=== PATIENT | male | born 1930 | race Caucasian/White ===

== ENCOUNTER 2018-07-19 18:41 | Inpatient (IN) ==
--- NOTE | 2018-07-19 19:47 | Cat Scan Report ---
CLINICAL INFORMATION: Head injury COMPARISON: None. TECHNIQUE: Axial noncontrast-enhanced images through the brain. FINDINGS: No acute intracranial hemorrhage. No subdural hematoma. No subarachnoid hemorrhage. Basilar cisterns are normal. Severe cerebral atrophy with marked enlargement of superficial subarachnoid spaces and ventricles. No intra-axial hemorrhage. No focal intra-axial attenuation abnormality or localized mass effect. No midline shift. No calvarial fracture. No lytic lesion. Temporal bones are negative. IMPRESSION: 1. Severe cerebral atrophy 2. No acute or focal abnormality The exam was performed using radiation dose optimization techniques including, but not limited to, automated exposure control, adjustment of the mA and/or kV according to patient size and use of iterative reconstruction technique. Interpreted and Authenticated by: Leandro March 07/19/18
--- NOTE | 2018-07-19 19:49 | XRay Report ---
CLINICAL INFORMATION: Fall. Hip pain. TECHNIQUE: AP pelvis. COMPARISON: Previous examination dated 10/03/2017 FINDINGS: Markedly suboptimal evaluation. The patient was unable to straighten his left leg. No pelvic fracture. Sacrum is negative. There is degenerative disc disease in the lower lumbar spine. There is lumbar scoliosis. Left hip is poorly visualized. Subcapital fracture is possible. CT scan is pending. IMPRESSION: 1. Negative pelvis. No pelvic fracture 2. Left subcapital hip fracture is possible. CT scan is pending Interpreted and Authenticated by: Leandro March 07/19/18
--- NOTE | 2018-07-19 19:56 | Cat Scan Report ---
CLINICAL INFORMATION: Left hip pain TECHNIQUE: Axial noncontrast enhanced images through the pelvis and hips. Sagittal and coronal reformatted images COMPARISON: Plain film examination of the pelvis dated 07/19/2018. FINDINGS: Left subcapital hip fracture with mild impaction. No lytic lesion. No evidence for pathologic fracture. Right hip is negative. Pelvis is negative. No pelvic fracture. No lytic lesion. Sacrum is negative. Degenerative disc disease in the lower lumbar spine. There is a right inguinal hernia containing small bowel. Hernia defect measures 2.5 cm. Small bowel extends to the base of the scrotum. No evidence for obstruction. No bowel wall thickening. No fluid within the hernia sac. There is a small left inguinal hernia containing only mesenteric fat. There is calcification of the abdominal aorta. Distal abdominal aorta measures approximately 2.6 cm in AP diameter. Large amount of fecal material within the rectum consistent with fecal impaction. Probable mild pneumatosis with bowel wall thickening consistent with stercoral colitis. No free intraperitoneal fluid. No pelvic abscess. No diverticulitis. Severe degenerative disc disease in the lower lumbar spine. Left renal pelvis is dilated. No definite hydronephrosis. No ureteral stone. IMPRESSION: 1. Left subcapital hip fracture 2. Right inguinal hernia containing small bowel. No mechanical small bowel obstruction. 3. Findings consistent with fecal impaction within the rectum. Probable mild bowel wall thickening and mild pneumatosis 4. Calcification of the abdominal aorta. Mildly dilated infrarenal abdominal aorta as above Interpreted and Authenticated by: Leandro March 07/19/18
[2018-07-19] MEDS ORDERED: HYDROmorphone 2 MG/ML VIAL IV PRN (20:10)
--- NOTE | 2018-07-19 20:17 | Emergency Department Note ---
Head Injury HPI - General Chief complaint: Head Injury Stated complaint: head injury, laceration Time Seen by Provider: 07/19/18 18:55 Source: patient Mode of arrival: wheelchair Limitations: no limitations - History of Present Illness HPI Narrative: 87-year-old male presents with head injury. About half hour prior to arrival he somehow fell and hit his head on the wall. Laceration controlled with simple dressing. No loss of consciousness. Denies any head or neck pain. He lives at home with his and has a caregiver that comes in. states he has severe dementia and he does not really want to walk or get around at all now that this happened but she believes he just hurt his head. Patient will not give me any information, is confused and somewhat combative on exam. Difficult to assess. Place: home - Related Data Previous Rx's Medication Instructions Recorded wheeled walker #1 ea 10/05/17 citalopram 20 mg tablet 20 mg PO QPM #90 tab 10/20/17 wheelchair See Dose Instructions .ROUTE 03/22/18 .MEDSUPPLY #1 each Allergies/Adverse reactions: Allergies Allergy/AdvReac Type Severity Reaction Status Date / Time Penicillins AdvReac Severe Swelling Verified 07/19/18 18:44 Review of Systems All systems ED: reviewed and negative except as stated. Past Medical History - Past Medical History Medical history: Reports: dementia, other (Alzheimer's disease, inguinal hernia, epidermal cyst) Psychiatric history: Reports: other (Dementia) Surgical history ED: Reports: non-contributory - Social History smoking status: Never smoker Alcohol use: Reports: None Drug use: Reports: none Physical Exam Limitations: no limitations General appearance: alert, other (Agitated at times. Is calm with family at the bedside but when I try to approach him to assess him he becomes agitated) Head: normocephalic, other (Laceration to posterior scalp through the dermis and epidermis, irregular 2 cm) Eye: Present: normal appearance, PERRL. Absent: conjunctival injection ENT: normal exam, normal oropharynx, TM's normal bilaterally, normal external ear exam Neck: Present: normal inspection, trachea midline. Absent: tenderness Chest: Present: symmetric chest wall rise Respiratory: Present: normal lung sounds bilaterally. Absent: respiratory distress, rales/crackles, accessory muscle use Cardiovascular: Present: regular rate, normal heart sounds Extremities: Present: normal capillary refill. Absent: normal inspection (Patient becomes combative with any pressure on the left hip area. Difficult to access but is definitely tender diffusely left hip) Neurological: Present: alert, oriented X3 Psychiatric: Present: normal affect, normal mood Skin: Present: warm, dry, normal color. Absent: intact (Please see head assessment for laceration to posterior scalp) Course Course Narrative: We are unable to get a hip x-ray and have patient cooperate due to agitation and dementia. We were able to however get CT scans done. It does show head CT is negative for any acute findings but he does have a hip fracture. At 2014 I did speak with Dr. Darling, orthopedist iron worker foreman. He would like to see the h ospitalist would admit this patient and he will see him in the morning. Family also considering may be long-term care placement as he was already quite a lot for them to handle at home and with this he will be much worse. @2200 Dr. Muir accepted pt, Dr Darling to consult Vital Signs Temperature 96.7 F L 07/19/18 18:42 Pulse Rate 88 07/19/18 18:42 Respiratory Rate 20 07/19/18 18:42 Blood Pressure 140/80 07/19/18 18:42 Pulse Oximetry (%) 95 07/19/18 18:42 Temperature 96.7 F L 07/19/18 18:42 Pulse Rate 95 H 07/19/18 22:01 Respiratory Rate 18 07/19/18 20:10 Blood Pressure 129/76 07/19/18 22:01 Pulse Oximetry (%) 90 07/19/18 22:01 Head Injury - Lab Data Lab results reviewed: Yes I reviewed the patient's lab results. Result diagrams: 07/19/18 20:32 07/19/18 20:32 Lab Results 07/19/18 07/19/18 Range/Units 20:32 20:32 WBC 18.5 H (4.5-11.0) K/mcL RBC 5.18 (4.50-5.90) M/mcL Hgb 14.1 (13.5-16.5) g/dL Hct 43.9 (41.0-55.0) % MCV 84.8 (80.0-100.0) fL MCH 27.3 (26.0-34.0) pg MCHC 32.2 (31.0-36.0) g/dL RDW 13.6 (11.5-14.5) % Plt Count 262 (140-440) K/mcL MPV 8.3 (7.4-10.4) fL Gran % 90.2 H (38.0-78.0) % Lymph % (Auto) 4.6 L (15.5-49.0) % [place] % (Auto) 5.0 (1.0-12.0) % Eos % (Auto) 0.2 (0.0-7.0) % Baso % (Auto) 0 (0.0-2.0) % Gran # 16.6 H (1.8-8.0) K/mcL Lymph # (Auto) 0.8 L (1.5-4.8) K/mcL [place] # (Auto) 0.9 (0.1-0.9) K/mcL Eos # (Auto) 0 (0.0-0.7) K/mcL Baso # (Auto) 0 (0.0-0.3) K/mcL Sodium 141 (133-145) mmol/L Potassium 4.8 (3.3-5.1) mmol/L Chloride 104 (96-108) mmol/L Carbon Dioxide 25 (22-30) mmol/L Anion Gap 12.0 (8-16) BUN 30 H (8-23) mg/dl Creatinine 1.1 (0.7-1.2) mg/dl GFR Calculation 60 Glucose 110 H (70-105) mg/dL Calcium 9.7 (8.6-10.4) mg/dl Total Bilirubin 0.4 (0.0-1.0) mg/dL AST 23 (0-37) U/l ALT 20 (0-40) U/l Alkaline Phosphatase 102 (39-117) U/L Total Protein 7.0 (5.9-8.4) gm/dL Albumin 3.9 (3.2-5.2) gm/dL Globulin 3.1 (2.2-3.7) gm/dL Albumin/Globulin Ratio 1.3 (1.0-2.3) - Radiology Data Radiology results reviewed: Yes I reviewed the patient's radiology results. Disposition Pt seen by CONTRACT SHELTERED WORKSHOP SUPERVISOR/PA only: No Clinical Impression: Fall, Hip fracture, Dementia, Head injury, Laceration Disposition: Xfer As Inpt ([facility]) Condition: Fair Referrals: Scott Aly PA-C [Primary Care Provider] - Loree Darling MD [Physician] - Time of Disposition: 10:07
[2018-07-19 21:25] LABS: Basophils # (Auto) 0 K/mcL (0.0-0.3); Basophils % (Auto) 0 % (0.0-2.0); Eosinophils # (Auto) 0 K/mcL (0.0-0.7); Eosinophils % (Auto) 0.2 % (0.0-7.0); Granulocytes % (Auto) 90.2 % (38.0-78.0); Lymphocytes # (Auto) 0.8 K/mcL (1.5-4.8); Lymphocytes % (Auto) 4.6 % (15.5-49.0); Mean Cell Volume 84.8 fL (80.0-100.0); Mean Corpuscular HGB Conc 32.2 g/dL (31.0-36.0); Monocytes # (Auto) 0.9 K/mcL (0.1-0.9); Platelet Count 262 K/mcL (140-440); RBC 5.18 M/mcL (4.50-5.90); Red Cell Distribution Width 13.6 % (11.5-14.5)
[2018-07-19 21:42] LABS: ALT/SGPT 20 U/l (0-40); Albumin 3.9 gm/dL (3.2-5.2); Albumin/Globulin Ratio 1.3 (1.0-2.3); Alkaline Phosphatase 102 U/L (39-117); Blood Urea Nitrogen 30 mg/dl (8-23)
--- NOTE | 2018-07-19 22:14 | Internal Med History&Physical ---
Medical - H&P: HPI Patient information: Note initiated : 07/19/18 at 10:12 pm Service Date, if different from initiated Date: [] Patient: Sandoval Chaudhary a 87 y/o M admitted on for head injury, laceration. Chief Complaint: [] Chief complaint: fall History of present illness: Mr. Chaudhary is a 87 year old M with history of advanced Alzheimer's dementia with mostly non-communicative and has developed progressive weakness presents to the ER after sustaining a fall along with head laceration. He is accompanied by his who is his primary caregiver. Per records has been having substantial difficulty taking care of Sandoval due to advanced dementia.. Initial workup was consistent with left hip subcapital fracture, white count of 18,000. Patient underwent head laceration repair. Orthopedics was consulted Hospitalist service was requested for admission. At the time of evaluation patient is nonverbal. He is in moderate distress from pain. No family present. has already left home. Most of the history is obtained from review of prior medical records and ER physician. Per records patient does not have any history of coronary disease/CVA/renal failure. Patient does not have any history of smoking alcoholism. Review of systems 10 point review of system was attempted but could not be performed Medical - H&P: PMH Medical history: Right inguinal hernia (Chronic) Urge incontinence (Chronic) 2013 Epidermal inclusion cyst (Chronic) (04/26/14-Dr. Brooke) Alzheimers disease (Chronic) 2007 Surgical History H/O repair of right rotator cuff (Chronic) 2009 H/O Achilles tendon repair (Chronic) 2005 Family History Father Alcohol abuse Malignant neoplasm Cerebrovascular accident (CVA) Mother , at age 63 Alcohol abuse Atherosclerosis of coronary artery Social History marital status: smoking status: Never smoker alcohol intake frequency: does not drink Medical - H&P: Meds Home Medications Medication Instructions Recorded Confirmed Type Citalopram Hydrobromide 20 mg PO DAILY 07/20/18 07/20/18 History [Citalopram HBr] Multivitamin 1 tab PO DAILYP PRN 07/20/18 07/20/18 History Allergies Allergy/AdvReac Type Severity Reaction Status Date / Time Penicillins Allergy Severe Swelling Verified 07/20/18 06:07 Medical - H&P: Exam - Constitutional Vitals: Temp Pulse Resp BP Pulse Ox 96.7 F L 95 H 18 129/76 90 07/19/18 18:42 07/19/18 22:01 07/19/18 20:10 07/19/18 22:01 07/19/18 22:01 General appearance: no acute distress Exam: Resting comfortably nonverbal noncommunicative Head laceration sutured No ear nose discharge Oral cavity dry Neck no lymphadenopathy S1-S2 irregular occasional, is a systolic murmur grade 1 Diminished breath sounds bases Abdomen soft Left lower extremity shortened and externally rotated No joint swelling erythema or lymphedema Deleon's catheter draining clear urine Skin no suspicious lesion Psych no agitation Neuro could not performed underlying dementia Medical - H&P: Reslt - Labs CBC & Chem 7: 07/20/18 03:46 07/20/18 03:46 Labs: Short CBC 07/19/18 Range/Units 20:32 WBC 18.5 H (4.5-11.0) K/mcL Hgb 14.1 (13.5-16.5) g/dL Hct 43.9 (41.0-55.0) % Plt Count 262 (140-440) K/mcL BMP 07/19/18 20:32 Sodium 141 Potassium 4.8 Chloride 104 Carbon Dioxide 25 BUN 30 H Creatinine 1.1 Glucose 110 H Calcium 9.7 Liver Function 07/19/18 Range/Units 20:32 Total Bilirubin 0.4 (0.0-1.0) mg/dL AST 23 (0-37) U/l ALT 20 (0-40) U/l Alkaline Phosphatase 102 (39-117) U/L Albumin 3.9 (3.2-5.2) gm/dL Medical - H&P: A/P (1) Closed left hip fracture Current visit: Yes Status: Acute * Left hip fracture-inpatient admit. Orthopedic consult. Pain management. Keep n.p.o. * Preoperative risk evaluation-based on [place] [employer] risk stratification patient would fall under high risk category based on age and surgery specific risk however prior history of CAD/CVA renal failure he has no modifiable risk factor at this time. Patient may proceed with surgery after discussion of risks and benefits by respective care provider including orthopedics and anesthesia. * Leukocytosis likely stress response-check UA blood culture. Start empiric Rocephin. De-escalate in 24 hours if no evidence of infection * History of dementia high risk delirium. Continue close monitoring * Dementia induced disorder continue citalopram * DNR * Prophylaxis will be as per orthopedics Plan * Inpatient admit * Pain management * Empiric antibiotic coverage * N.p.o./crystalloids
[2018-07-19 22:15] LABS: Appearance,Urine CLEAR; Bilirubin,Urine NEG (NEG); Color,Urine YELLOW; Glucose,Urine (UA) NEGATIVE (NEG); Leukocyte Esterase,Urine NEG /uL (NEG); Protein,Urine NEG (NEG); Specific Gravity,Urine 1.016 (1.000-1.035); Urine Blood NEG mg/dL (<0.03); Urobilinogen,Urine NEG (NEG)
[2018-07-20] MEDS ORDERED: 0.9 % SODIUM CHLORIDE 1,000 ML IV SCH (00:49)
[2018-07-20] MEDS ORDERED: POTASSIUM CHLORIDE 20 MEQ PACKET PO PRN ×2 (00:49→12:43)
[2018-07-20] MEDS ORDERED: traZODone HCL 50 MG TABLET PO PRN ×2 (00:49→21:00)
[2018-07-20] MEDS ORDERED: HYDROmorphone 2 MG/ML VIAL IV PRN (00:49)
[2018-07-20] MEDS ORDERED: ONDANSETRON 4 MG/2 ML VIAL IV PRN ×3 (00:49→12:43)
[2018-07-20] MEDS ORDERED: ACETAMINOPHEN 325 MG TABLET PO PRN (00:49)
[2018-07-20] MEDS ORDERED: cefTRIAXone 2 GM in DEXTROSE 5% IN WATER 50 ML IV SCH ×2 (00:49→17:00)
[2018-07-20] MEDS ORDERED: BISACODYL 10 MG SUPP.RECT PR PRN ×2 (00:49→12:43)
[2018-07-20] MEDS ORDERED: MAGNESIUM SULFATE 2 GM/50 ML BAG IV PRN ×2 (00:49→12:43)
[2018-07-20] MEDS ORDERED: guaiFENesin/CODEINE 10 ML UDC PO PRN ×2 (00:49→12:43)
[2018-07-20] MEDS ORDERED: ACETAMINOPHEN 1,000 MG/100 ML BOTTLE IV PRN (00:49)
[2018-07-20] MEDS: 0.9 % SODIUM CHLORIDE 10 ML SYRINGE IV SCH ×4 (01:12→20:57)
[2018-07-20] MEDS ORDERED: cefTRIAXone 1 GM VIAL ONE (01:25)
[2018-07-20] MEDS: cefTRIAXone 1 GM VIAL ONE ×2 (01:41→01:44)
--- NOTE | 2018-07-20 06:06 | XRay Report ---
INDICATION: Preoperative evaluation TECHNIQUE: AP chest x-ray,portable COMPARISON: None FINDINGS:There is density in the left retrocardiac region consistent with atelectasis or infiltrate. Lungs are otherwise negative. No other focal pulmonary parenchymal abnormalities. Heart size and vascularity are normal. No pulmonary edema or pulmonary congestion. IMPRESSION: 1. Mild density in left retrocardiac region consistent with atelectasis or infiltrate 2. Otherwise negative AP portable chest Interpreted and Authenticated by: Leandro March 07/20/18
[2018-07-20 06:17] LABS: Mean Cell Volume 84.6 fL (80.0-100.0); Platelet Count 237 K/mcL (140-440); RBC 4.66 M/mcL (4.50-5.90); Red Cell Distribution Width 13.8 % (11.5-14.5)
[2018-07-20 07:17] LABS: ALT/SGPT 17 U/l (0-40); Albumin 3.6 gm/dL (3.2-5.2); Albumin/Globulin Ratio 1.4 (1.0-2.3); Alkaline Phosphatase 84 U/L (39-117); Bilirubin,Direct < 0.2 mg/dL (0.0-0.3); Blood Urea Nitrogen 34 mg/dl (8-23); Gamma Glutamyl Transpeptidase 10 U/L (8-61); Uric Acid 6.6 mg/dL (2.5-8.0)
--- NOTE | 2018-07-20 07:33 | Consultation ---
DATE OF CONSULTATION: 07/20/2018 REQUESTING PHYSICIAN: GINETTE Doan REASON FOR CONSULTATION: Left hip fracture, head laceration. HISTORY OF PRESENT ILLNESS: The patient is an 87-year-old demented male who presented with his family to the ER yesterday evening after a fall with a head laceration. He was subsequently found to also have a left hip fracture. CT of the pelvis as well as the head were completed. The patient was admitted overnight by the hospitalist with further plan for potential operative fixation of left hip fracture. At this point the patient is lying comfortably in bed with no acute distress. He does not communicate. He does appear pleasant. PAST MEDICAL HISTORY: Alzheimer's dementia, inguinal hernia, epidural cyst. PAST SURGICAL HISTORY: Significant for Achilles tendon repair, rotator cuff repair. ALLERGIES: PENICILLINS. MEDICATIONS: Citalopram. SOCIAL HISTORY: Currently, he does reside at home with his , who is his primary electro mechanical solar technician. They do have what sounds like [facility] come daily to help as well. He is a nontobacco user, does not use any alcohol. REVIEW OF SYSTEMS: Otherwise, per review of chart is negative. PHYSICAL EXAMINATION: GENERAL: The patient is awake this morning. He is in no acute distress. He is not conversive, but does appear to be pleasant. EXTREMITIES: Bilateral lower extremities examined. His skin is intact throughout. His pelvis is stable. On his left hip he does have some ecchymosis over the greater trochanter. He does have his hips flexed and knees flexed in a comfortable position, lying on pillows. He does have a large mobile nodule approximately 4 or 5 cm at the level of the knee laterally. Distally, there is no skin discoloration over this area. It appears to be a subcutaneous lipoma potentially. Otherwise, skin is intact throughout lower extremities. His feet are warm and well perfused. He does not follow any commands to move his feet but spontaneously does minimally. LABORATORY DATA: CBC with a white count of 18.5 on admit with one being 15.1. His H and H is 12.6 and 39.4. His glucose is 110 with a normal creatinine of 1.1. His coagulation studies are pending. He has a CT of his head which is negative for any acute lesions, significant cerebral atrophy. AP pelvis which was difficult to interpret as he kind of had his hips flexed in an angled position. However, CT does demonstrate a valgus impacted femoral neck fracture of the left side. There are no other fractures that are identified. Of note, on the CT there are additional findings of abdominal aortic aneurysm, inguinal hernia. ASSESSMENT AND PLAN: This is an 87-year-old male with a left subcapital valgus impacted hip fracture with also a head laceration in a demented patient. At this point, his family is not present for further discussion. However, we will discuss with them as I would typically in non-demented patient perform a hip pinning, which would be less invasive and faster recovery, but also requires little a bit of compliance from the patient with regards to weightbearing. However, they do state he does walk minimally and uses a wheelchair with which he may be amenable to pinning for pain control and stability to allow the fracture to heal. Upon further discussion with his , he does not comply with restrictions and does walk to and from the kitchen/bathroom. I think given this and the non compliance a ian arthroplasty is the better option. does agree and plans to proceed with left hip ian arthroplasty. DLZoey:david Job ID: [id number] Doc ID: [id number] Loree CARRILLO
[2018-07-20 09:00] LABS: Band Neutrophils % 1 % (0-10); Lymphocytes % 6 % (15-49); Monocytes % (Manual) 6 % (1-12); Platelet Estimate NORMAL (NORMAL); RBC Morphology NORMAL (NORMAL); Segmented Neutrophils % 87 % (38-78)
[2018-07-20] MEDS ORDERED: ceFAZolin 1 GM VIAL IV SCH ×2 (09:00→16:30)
[2018-07-20] MEDS ORDERED: DOCUSATE SODIUM 100 MG CAPSULE PO SCH (09:00)
[2018-07-20] MEDS ORDERED: MULTIVIT,THER IRON,CA,FA & MIN 1 TABLET PO SCH (09:00)
[2018-07-20] MEDS ORDERED: LIDOCAINE HCL/PF 100 MG/5 ML SYRINGE IV ONE (09:10)
[2018-07-20] MEDS ORDERED: MIDAZOLAM 2 MG/2 ML VIAL IV ONE (09:10)
[2018-07-20] MEDS ORDERED: ONDANSETRON 4 MG/2 ML VIAL IV ONE (09:10)
[2018-07-20] MEDS ORDERED: KETAMINE 100 MG/ML ML IV ONE (09:10)
[2018-07-20] MEDS ORDERED: GLYCOPYRROLATE 0.2 MG/ML VIAL IV ONE (09:10)
[2018-07-20] MEDS ORDERED: PHENYLEPHRINE 10 MG/ML VIAL IV ONE (09:10)
[2018-07-20] MEDS ORDERED: TRANEXAMIC ACID 1,000 MG/10 ML VIAL IV ONE (09:10)
[2018-07-20] MEDS ORDERED: PROPOFOL 200 MG/20 ML VIAL IV ONE (09:10)
[2018-07-20] MEDS ORDERED: IPRATROPIUM/ALBUTEROL 3 ML AMPUL.NEB NEB PRN (10:42)
[2018-07-20] MEDS ORDERED: fentaNYL 100 MCG/2 ML VIAL IV PRN (10:42)
[2018-07-20] MEDS ORDERED: MEPERIDINE 25 MG/ML SYRINGE IV PRN (10:42)
[2018-07-20] MEDS ORDERED: LACTATED RINGERS 1,000 ML IV SCH (10:45)
--- NOTE | 2018-07-20 10:59 | Brief Operative Note ---
Date of procedure: 07/20/18 Pre-op diagnosis: left femoral neck fracture Post-op diagnosis: same Procedure: Left cemented hip hemiarthroplasty Grafts/Implants: Yes (depuy summit femoral step basic size 5, -3 tapered spacer, size 52 head) Anesthesia: spinal Findings: femoral neck fracture Complications: none Surgeon: Loree Darling Power Generation Plant Operator: Crispin White Estimated blood loss (cc): 150 Tourniquet Time (Minutes): 0 Specimens Removed/Pathology: none sent Condition: stable Disposition: PACU
[2018-07-20] MEDS ORDERED: oxyCODONE HCL 5 MG TABLET PO PRN (11:04)
[2018-07-20] MEDS ORDERED: NALOXONE HCL 0.4 MG/ML VIAL IV PRN ×2 (11:04→12:43)
[2018-07-20] MEDS ORDERED: BENZOCAINE/MENTHOL 1 LOZENGE PO PRN ×2 (11:04→12:43)
[2018-07-20] MEDS ORDERED: IBUPROFEN 200 MG TABLET PO PRN (11:04)
--- NOTE | 2018-07-20 12:01 | XRay Report ---
CLINICAL INFORMATION: Postsurgical follow-up TECHNIQUE: AP pelvis. AP and stable lateral left hip COMPARISON: Previous CT scan dated 07/19/2018 FINDINGS: Status post left hip arthroplasty. Alignment is anatomic. There is postsurgical soft tissue and intra-articular gas. There are skin morelia overlying the left hip. IMPRESSION: Status post left hip replacement Interpreted and Authenticated by: Leandro March 07/20/18
--- NOTE | 2018-07-20 12:59 | Operative Note ---
DATE OF OPERATION: 07/20/2018 PREOPERATIVE DIAGNOSES: 1. Left femoral neck fracture, valgus impacted. 2. Posterior head laceration. POSTOPERATIVE DIAGNOSES: 1. Left femoral neck fracture, valgus impacted. 2. Posterior head laceration. PROCEDURE PERFORMED: Left cemented hip hemiarthroplasty with DePuy. SURGEON: Loree Darling M.D. CORK SLABS SAWYER: Crispin White PA-C. ANESTHESIA: Spinal with LMA. IV FLUIDS: 1 liter lactated Ringer's. IV ANTIBIOTICS: 2 grams Ancef. ESTIMATED BLOOD LOSS: 150 mL. TOURNIQUET TIME: Not applicable. IMPLANTS: Size 5 [place] femoral stem from DePuy with a -3 taper and a size 52 metal head. INTRAOPERATIVE COMPLICATIONS: None apparent. PATHOLOGY/LAB: None. INDICATIONS FOR PROCEDURE: The patient is an 87-year-old male who fell yesterday evening at home with a head laceration which was brought in for that was subsequently found to have a left hip fracture as well. He has significant Alzheimer's and does not comply with any restrictions nor does he communicate verbally. Per report, he does ambulate to and from the kitchen as well as to the restroom, but does use a wheelchair for some mobility as well. This is a valgus-impacted femoral neck fracture which could consider pinning rather than a hip hemiarthroplasty. I discussed this with the , however, I am concerned that he will not be compliant with the restrictions and think he would be best served with hip hemiarthroplasty which will allow him immediate weightbearing and ambulation. does agree with this and elects to proceed in this fashion. DESCRIPTION OF PROCEDURE: The patient was met in the preoperative holding area, and the site was verified and marked with the 's input. He was then taken to the operating room where he underwent successful spinal anesthesia and LMA. He was placed in the lateral decubitus position with left side up and axillary arm roll placed. His lower extremity was adequately padded. The left lower extremity was then prepped and draped in the usual sterile fashion with ChloraPrep. A surgical timeout was performed to verify patient identity, correct procedure being performed, correct extremity being operated on, and everybody was in agreement. Approximately a 12 cm incision was made over the posterior one-third/middle one-third junction of the greater trochanter. Skin was sharply incised. Hemostasis was obtained with electrocautery device down to the tensor fasciae latae muscle and IT band distally. This was sharply incised with a clean 15 blade to expose the greater trochanter. The bursa was excised. The short external rotators were elevated off of the posterior aspect of the femoral neck and the greater trochanter to expose the capsule. These were tagged. Capsulotomy was made in line with the femoral neck, and the end of the capsule was also tagged with 0 Ethibond. At this point, the distal aspect of the femoral neck was exposed to the lesser tuberosity. 15 mm proximal to the less tuberosity, the femoral neck cut was marked. Utilizing oscillating saw and a retractor deep, the femoral neck cut was made and removed a portion of the fractured neck with a rongeur. Corkscrew was used to excise the femoral head in its entirety. It did not appear to be pathologic. This was sized to be a 52 mm. At this point, I copiously irrigated the acetabulum. I removed all the bony debris as well. The femoral neck was then exposed utilizing a femoral neck elevator. The experimental box tester was initially used to open the canal and then subsequently a canal finder was placed and a lateralizing reamer was was utilized.. Broaches were then subsequently placed up to a size 5 with good fit and rotational control matching the version of the posterior femoral neck. This was then placed into a standard neck with a 0 offset head. This was attempted to be reduced, however, it was very difficult. Trialed a -3mm and the joint was able to reduce. Leg lengths at this point appeared to be equal. He had full extension and hip flexion was stable to greater than 90 degrees, and he was stable with internal rotation as well. He was stable with a side lying position of 30/30 with hip flexion and knee flexion. I felt this was an adequate implant construct. The joint and open wound was copiously irrigated the with Irrisept and let it sit prior to irrigating it. At this point, the implants were then removed. The canal restrictor was placed deep just over 14cm. Placed a lap into the acetabulum while cementing. The canal was then irrigated utilizing pulse lavage, brush and a suction device to dry it out. Cement was then placed and pressurized. The stem was placed to match the version we had created The stem was held in place until the cement hardened. Placed the femoral head, impacted it and reduced the joint, and again went through range of motion which was stable, along with leg lengths equal. The posterior capsule was closed with 0 Ethibond in interrupted fashion, did tack down the short external rotators back to the greater trochanter via soft tissue technique. The wound was then irrigated again. The tensor fasciae latae muscle along with IT band was closed initially in interrupted fashion with 0 Ethibond. This repair was then completed with Stratafix distally and ran this proximally to the muscle. The most proximal portion of muscle was oversewn with 1-0 Vicryl. The fat layer was then closed as well and tacked down to the IT band and the tensor muscle itself. The subcutaneous tissue was closed with 3-0 Vicryl, skin closed with morelia. The leg was then cleaned and dried. Xeroform was placed along Medipore tape to secure the dressing. The patient awoke from anesthesia and placed into a hip abduction pillow and transferred to recovery. POSTOPERATIVE PLAN: The patient will be returned to the floor for postoperative recovery. Will likely transition to a long-term care facility given is a bit overwhelmed with his care at home. [id number] Job ID: [id number] Doc ID: [id number] Loree CARRILLO
[2018-07-20] MEDS: 0.9 % SODIUM CHLORIDE 1,000 ML IV SCH (13:11)
[2018-07-20] MEDS: ACETAMINOPHEN 1,000 MG/100 ML BOTTLE IV PRN (13:13)
--- NOTE | 2018-07-20 13:16 | Internal Med Progress Note ---
Medical - PN: Subj Patient information: Note initiated : 07/20/18 at 1:11 pm Service Date, if different from initiated Date: [] Patient: Sandoval Chaudhary a 87 y/o M admitted on 07/20/18 for head injury, laceration. Chief Complaint: [] Interval history: Mr. Chaudhary is a 87 year old M with history of advanced Alzheimer's dementia with mostly non-communicative and has developed progressive weakness presents to the ER after sustaining a fall along with head laceration. He is accompanied by his who is his primary caregiver. Per records has been having substantial difficulty taking care of Sandoval due to advanced dementia.. Initial workup was consistent with left hip subcapital fracture, white count of 18,000. Patient underwent head laceration repair. Orthopedics was consulted Hospitalist service was requested for admission. At the time of evaluation patient is nonverbal. He is in moderate distress from pain. No family present. has already left home. Most of the history is obtained from review of prior medical records and ER physician. Per records patient does not have any history of coronary disease/CVA/renal failure. Patient does not have any history of smoking alcoholism. 07/20-patient seen postoperatively. Underwent left hip arthroplasty. Alert but nonverbal. Short draining clear urine. Stable hemodynamics. Systolic 170. White count down from 18.5-15.1. Patient started on anticoagulation by orthopedics for DVT prophylaxis. No family at bedside. Case management to coordinate a safe discharge plan likely to [facility]. - Constitutional Vitals: Vital Signs Temp Pulse Resp BP Pulse Ox 97.7 F 95 H 20 171/99 95 07/20/18 12:30 07/20/18 12:52 07/20/18 12:30 07/20/18 12:52 07/20/18 12:52 Period Temp Pulse Resp BP Sys/Stephens Pulse Ox Last 24 Hr 96.7 F-99.2 F 35-104 15-20 116-172/68-99 85-100 Intake and Output 07/19/18 07/20/18 07/20/18 21:59 05:59 13:59 Intake Total 0 1999 Output Total 375 Balance 0 1625 Weight 150 lb 150 lb Intake & Output: Intake & Output 07/19/18 07/20/18 07/20/18 21:59 05:59 13:59 Intake Total 0 1999 Output Total 375 Balance 0 1625 Weight 150 lb 150 lb Intake: Oral 0 0 IV - Manual Only 1999 Output: Urine Catheter Amount 375 Other: Urine Appearance Clear Short Clear Clear Sediment Urine Color Straw Short Bright Yellow Urine Odor Foul General appearance: no acute distress Exam: Alert and comfortable Nonlabored breathing Short is draining clear urine No lymphedema Medical - PN: Obj Da - Labs CBC & Chem 7: 07/20/18 03:46 07/20/18 03:46 Labs: Abnormal Lab Results 07/20/18 07/20/18 07/20/18 06:49 03:46 03:46 WBC 15.1 H Hgb 12.6 L Hct 39.4 L Gran % Lymph % (Auto) Gran # Lymph # (Auto) Seg Neutrophils % 87 H Lymphocytes % 6 L PT 15.4 H INR 1.2 H BUN 34 H Glucose 129 H 07/19/18 07/19/18 20:32 20:32 WBC 18.5 H Hgb Hct Gran % 90.2 H Lymph % (Auto) 4.6 L Gran # 16.6 H Lymph # (Auto) 0.8 L Seg Neutrophils % Lymphocytes % PT INR BUN 30 H Glucose 110 H Meds: Medications Apixaban (Eliquis) 2.5 mg PO BID [facility] Bisacodyl (Dulcolax) 10 mg [place] Q2-3DAYS PRN PRN Reason: Constipation Citalopram Hydrobromide (Celexa) 20 mg PO HS [facility] Docusate Sodium (Colace) 100 mg PO BID [facility] Guaifenesin/Codeine Phosphate (Robitussin Ac) 10 ml PO Q4HP PRN PRN Reason: Cough Ceftriaxone Sodium 2 gm/ (Dextrose) 50 mls @ 100 mls/hr IV DAILY [facility] Magnesium Sulfate (Magnesium Sulfate) 2 gm in 50 mls @ 50 mls/hr IV UD PRN PRN Reason: MG = or < 1.7 Sodium Chloride (Sodium Chloride 0.9%) 1,000 mls @ 50 mls/hr IV .Q20H [facility] Stop: 07/22/18 12:48 Acetaminophen (Ofirmev) 1,000 mg in 100 mls @ 200 mls/hr IV Q6HP PRN PRN Reason: PAIN/FEVER > 101 Ibuprofen (Motrin) 400 mg PO QIDP PRN PRN Reason: Pain Iron Carb/Multivit/[place]/Folic Acid (Multivitamin W/Minerals) 1 tab PO DAILY [facility] Morphine Sulfate (Morphine) 0 mg IV Q1HP PRN PRN Reason: PAIN LEVEL > 6 Naloxone HCl (Narcan) 0.1 mg IV Q2MIN PRN PRN Reason: Opiate Reversal Ondansetron HCl (Zofran) 4 mg IV Q4-6HP PRN PRN Reason: Nausea And Vomiting Oxycodone HCl (Roxicodone) 0 mg PO Q4HP PRN PRN Reason: PAIN LEVEL 3-6 Potassium Chloride (Klor-Con) 40 meq PO DAILYP PRN PRN Reason: K+ < 3.5 Senna/Docusate Sodium (Senna Plus Tablet) 1 tab PO HS [facility] Sodium Chloride (Saline Flush) 10 ml IV Q8 [facility] Throat Lozenges (Cepacol) 1 lozenge PO PRN PRN PRN Reason: Sore Throat Trazodone HCl (Desyrel) 50 mg PO HSP PRN PRN Reason: Insomnia Medical - PN: A/P - Time Spent With Patient Total time spent is greater than 50% in coordination of care (as documented) at patient's floor/unit and/or counseling patient: 25 - 35 minutes (1) Closed left hip fracture Status: Acute Assessment and plan: * Left hip fracture-postop day 1. Left hemiarthroplasty. Postoperative care as per orthopedics. * Pain management as per orthopedics * DVT prophylaxis per orthopedics. Medicine consult * Leukocytosis likely stress response-clinically improving now at 15.5. DC antibiotic coverage. Negative UA or signs of infection * History of dementia high risk delirium. Avoid sedative hypnotics * Dementia induced disorder continue citalopram * DNR Plan * Postop care per orthopedics * DC antibiotics * PT OT/nutrition support * Discharge planning per case management Current Visit: Yes Medical - PN: Qual - VTE Deep Vein Thrombosis/Pulmonary Embolism Present on Admission: No
[2018-07-20] MEDS: oxyCODONE HCL 5 MG TABLET PO PRN (17:14)
[2018-07-20] MEDS: ceFAZolin 1 GM VIAL IV SCH ×2 (17:15→23:31)
[2018-07-20] MEDS: CITALOPRAM 20 MG TABLET PO SCH (20:56)
[2018-07-20] MEDS: SENNOSIDES/DOCUSATE SODIUM 1 TAB TABLET PO SCH (20:56)
[2018-07-20] MEDS: DOCUSATE SODIUM 100 MG CAPSULE PO SCH (20:56)
[2018-07-20] MEDS: APIXABAN 5 MG TABLET PO SCH (20:56)
[2018-07-20] MEDS ORDERED: SENNOSIDES/DOCUSATE SODIUM 1 TAB TABLET PO SCH (21:00)
[2018-07-20] MEDS ORDERED: APIXABAN 2.5 MG TABLET PO SCH (21:00)
[2018-07-20] MEDS ORDERED: CITALOPRAM 20 MG TABLET PO SCH (21:00)
[2018-07-21] MEDS: 0.9 % SODIUM CHLORIDE 10 ML SYRINGE IV SCH ×3 (04:34→21:12)
[2018-07-21] MEDS: 0.9 % SODIUM CHLORIDE 1,000 ML IV SCH ×3 (04:44→21:13)
[2018-07-21 06:45] LABS: Mean Cell Volume 85.3 fL (80.0-100.0); Mean Corpuscular HGB Conc 32.1 g/dL (31.0-36.0); Platelet Count 220 K/mcL (140-440); RBC 4.37 M/mcL (4.50-5.90); Red Cell Distribution Width 13.6 % (11.5-14.5)
[2018-07-21 07:09] LABS: ALT/SGPT 13 U/l (0-40); Albumin 3.3 gm/dL (3.2-5.2); Albumin/Globulin Ratio 1.2 (1.0-2.3); Alkaline Phosphatase 79 U/L (39-117); Bilirubin,Direct < 0.2 mg/dL (0.0-0.3); Blood Urea Nitrogen 29 mg/dl (8-23); Gamma Glutamyl Transpeptidase 8 U/L (8-61)
--- NOTE | 2018-07-21 07:21 | Orthopedic Progress Note ---
Subjective Patient information: Note initiated : 07/21/18 at 7:16 am Service Date, if different from initiated Date: [] Patient: Sandoval Chaudhary 87 y/o M admitted on 07/20/18 for head injury, laceration. Chief Complaint: [] Principal diagnosis: Left hip fracture Interval history: No acute events overnight. Working with therapy this AM, sitting on side of bed. Objective Vital signs: Vital Signs Temp Pulse Pulse Resp BP BP BP 07/21/18 07:08 98.3 F 100 H 18 138/78 07/21/18 04:00 99.2 F H 96 H 18 150/77 07/21/18 00:00 99.2 F H 98 H 16 168/78 07/20/18 20:00 98.9 F 92 H 20 150/74 07/20/18 19:41 07/20/18 15:45 89 136/83 07/20/18 15:15 81 127/72 07/20/18 14:41 07/20/18 14:15 128/80 07/20/18 13:50 07/20/18 13:45 135/86 07/20/18 13:24 174/104 07/20/18 13:15 181/107 07/20/18 12:52 95 H 171/99 07/20/18 12:30 97.7 F 92 H 20 172/97 07/20/18 12:25 97.8 F 89 18 155/90 07/20/18 12:15 82 16 168/90 07/20/18 12:00 81 15 156/86 07/20/18 11:45 98.1 F 83 15 149/86 07/20/18 11:30 80 15 161/88 07/20/18 11:25 79 15 144/91 07/20/18 11:20 73 16 129/79 07/20/18 11:15 97.5 F 76 15 116/68 07/20/18 08:00 97.1 F 72 16 130/82 Pulse Ox 07/21/18 07:08 95 07/21/18 04:00 90 07/21/18 00:00 91 07/20/18 20:00 91 07/20/18 19:41 95 07/20/18 15:45 97 07/20/18 15:15 95 07/20/18 14:41 95 07/20/18 14:15 93 07/20/18 13:50 97 07/20/18 13:45 97 07/20/18 13:24 94 07/20/18 13:15 96 07/20/18 12:52 95 07/20/18 12:30 94 07/20/18 12:25 99 07/20/18 12:15 100 07/20/18 12:00 100 07/20/18 11:45 100 07/20/18 11:30 100 07/20/18 11:25 100 07/20/18 11:20 100 07/20/18 11:15 100 07/20/18 08:00 97 Intake and Output 07/20/18 07/21/18 07/21/18 21:59 05:59 13:59 Intake Total 120 778 Output Total 150 400 Balance -30 378 Intake: IV 778 Sodium Chloride 0.9% 1,000 ml @ 778 50 mls/hr IV .Q20H [facility] Rx#: [id number] Oral 120 0 Output: Urine Catheter Amount 150 400 Other: Meal Dinner Percent of Meal Consumed 75% Weight 152 lb Intake & Output: Intake & Output 07/20/18 07/21/18 07/21/18 21:59 05:59 13:59 Intake Total 120 778 Output Total 150 400 Balance -30 378 Weight 152 lb Intake: IV 778 Sodium Chloride 0.9% 1,000 ml @ 778 50 mls/hr IV .Q20H [facility] Rx#: [id number] Oral 120 0 Output: Urine Catheter Amount 150 400 Other: Meal Dinner Percent of Meal Consumed 75% Incision: Yes clean and dry Incision clean and dry: Yes Dressing: Yes clean, Yes dry, Yes intact Weight bearing status: full Range of motion: Posterior hip precations Additional Comments: foot warm well perfused. - Labs CBC & BMP: 07/21/18 03:46 07/21/18 03:46 Labs: Orthopedic Labs 07/20/18 06:49 PT 15.4 H INR 1.2 H APTT 37 07/21/18 07/20/18 07/19/18 03:46 03:46 20:32 Hgb 12.0 L 12.6 L 14.1 Hct 37.3 L 39.4 L 43.9 Assessment and Plan (1) Hip fracture POD 1 s/p left hip ian arthroplasty for femoral neck fracture. --WBAT with posterior hip precautions x6 weeks --PT/OT--seeing him this AM --Oral pain medications -labs reviewed, H/H ok, WBC still elevated, afebrile, on supplemental O2. -prophy- sanjiv, scd's, IS, -Dispo: will need SNF placeement possibly vermin exterminator. Status: Acute
[2018-07-21] MEDS: ACETAMINOPHEN 1,000 MG/100 ML BOTTLE IV PRN ×2 (07:30→15:04)
[2018-07-21 07:48] LABS: Eosinophils % (Manual) 2 % (0-7); Lymphocytes % 9 % (15-49); Monocytes % (Manual) 9 % (1-12); Myelocytes % 1 % (0-0); Platelet Estimate NORMAL (NORMAL); RBC Morphology NORMAL (NORMAL); Segmented Neutrophils % 79 % (38-78)
[2018-07-21] MEDS ORDERED: HEPARIN 5,000 UNIT/ML VIAL SQ SCH (09:00)
[2018-07-21] MEDS: MULTIVIT,THER IRON,CA,FA & MIN 1 TABLET PO SCH (09:19)
[2018-07-21] MEDS: DOCUSATE SODIUM 100 MG CAPSULE PO SCH ×2 (09:19→21:13)
[2018-07-21] MEDS: APIXABAN 5 MG TABLET PO SCH ×2 (09:19→21:08)
--- NOTE | 2018-07-21 11:13 | XRay Report ---
INDICATION: Follow-up pneumonia TECHNIQUE: AP chest x-ray,portable upright COMPARISON: Chest x-ray dated 07/19/2018 FINDINGS:Focal left basilar, retrocardiac density is somewhat improved since previous examination consistent with improving pneumonia. No new abnormalities. Lungs are otherwise negative. Heart size and vascularity are normal. No pulmonary edema. No pulmonary congestion. IMPRESSION: 1. Improved left lower lobe infiltrate 2. No new abnormalities Interpreted and Authenticated by: Leandro March 07/21/18
--- NOTE | 2018-07-21 11:28 | Internal Med Progress Note ---
Medical - PN: Subj Patient information: Note initiated : 07/21/18 at 11:26 am Service Date, if different from initiated Date: [] Patient: Sandoval Chaudhary a 87 y/o M admitted on 07/20/18 for head injury, laceration. Chief Complaint: [] Interval history: Mr. Chaudhary is a 87 year old M with history of advanced Alzheimer's dementia with mostly non-communicative and has developed progressive weakness presents to the ER after sustaining a fall along with head laceration. He is accompanied by his who is his primary caregiver. Per records has been having substantial difficulty taking care of Sandoval due to advanced dementia.. Initial workup was consistent with left hip subcapital fracture, white count of 18,000. Patient underwent head laceration repair. Orthopedics was consulted Hospitalist service was requested for admission. At the time of evaluation patient is nonverbal. He is in moderate distress from pain. No family present. has already left home. Most of the history is obtained from review of prior medical records and ER physician. Per records patient does not have any history of coronary disease/CVA/renal failure. Patient does not have any history of smoking alcoholism. 07/20-patient seen postoperatively. Underwent left hip arthroplasty. Alert but nonverbal. Deleon draining clear urine. Stable hemodynamics. Systolic 170. White count down from 18.5-15.1. Patient started on anticoagulation by orthopedics for DVT prophylaxis. No family at bedside. Case management to coordinate a safe discharge plan likely to [facility]. 07/21-patient doing well. No overnight events. Was able to weight-bear today with physical therapy. DC Deleon's catheter. X-ray chest shows interval improvement in lower lobe atelectasis/infiltrate. However white count 15.5. No fever chills. No indication for antibiotics at this time. at bedside. Doing well. Ongoing postop care as per orthopedics - Constitutional Vitals: Vital Signs Temp Pulse Resp BP Pulse Ox 98.1 F 94 H 19 141/82 96 07/21/18 11:14 07/21/18 11:14 07/21/18 11:14 07/21/18 11:14 07/21/18 11:14 Period Temp Pulse Resp BP Sys/Stephens Pulse Ox Last 24 Hr 97.7 F-99.2 F 80-100 15-20 127-181/72-107 90-100 Intake and Output 07/20/18 07/21/18 07/21/18 21:59 05:59 13:59 Intake Total 120 778 240 Output Total 150 400 Balance -30 378 240 Weight 152 lb Intake & Output: Intake & Output 07/20/18 07/21/18 07/21/18 21:59 05:59 13:59 Intake Total 120 778 240 Output Total 150 400 Balance -30 378 240 Weight 152 lb Intake: IV 778 Sodium Chloride 0.9% 1,000 ml @ 778 50 mls/hr IV .Q20H [facility] Rx#: [id number] Oral 120 0 240 Output: Urine Catheter Amount 150 400 Other: Meal Dinner Breakfast Percent of Meal Consumed 75% 25% Feeding Ability Total Assistance General appearance: no acute distress Exam: Alert nonverbal Nonlabored breathing Deleon is draining clear urine No anxiety Postop dressing no localized swelling Medical - PN: Obj Da - Labs CBC & Chem 7: 07/21/18 03:46 07/21/18 03:46 Labs: Abnormal Lab Results 07/21/18 07/21/18 07/20/18 03:46 03:46 06:49 WBC 15.5 H RBC 4.37 L Hgb 12.0 L Hct 37.3 L Gran % Lymph % (Auto) Gran # Lymph # (Auto) Seg Neutrophils % 79 H Lymphocytes % 9 L Myelocytes % 1 H PT 15.4 H INR 1.2 H BUN 29 H Glucose 147 H Phosphorus 2.6 L Lactate Dehydrogenase 282 H 07/20/18 07/20/18 07/19/18 03:46 03:46 20:32 WBC 15.1 H RBC Hgb 12.6 L Hct 39.4 L Gran % Lymph % (Auto) Gran # Lymph # (Auto) Seg Neutrophils % 87 H Lymphocytes % 6 L Myelocytes % PT INR BUN 34 H 30 H Glucose 129 H 110 H Phosphorus Lactate Dehydrogenase 07/19/18 20:32 WBC 18.5 H RBC Hgb Hct Gran % 90.2 H Lymph % (Auto) 4.6 L Gran # 16.6 H Lymph # (Auto) 0.8 L Seg Neutrophils % Lymphocytes % Myelocytes % PT INR BUN Glucose Phosphorus Lactate Dehydrogenase Meds: Medications Apixaban (Eliquis) 2.5 mg PO BID [facility] Last Admin: 07/21/18 09:19 Dose: 2.5 mg Documented by: Bisacodyl (Dulcolax) 10 mg [place] Q2-3DAYS PRN PRN Reason: Constipation Citalopram Hydrobromide (Celexa) 20 mg PO [facility] Last Admin: 07/20/18 20:56 Dose: 20 mg Documented by: Docusate Sodium (Colace) 100 mg PO BID [facility] Last Admin: 07/21/18 09:19 Dose: 100 mg Documented by: Guaifenesin/Codeine Phosphate (Robitussin Ac) 10 ml PO Q4HP PRN PRN Reason: Cough Magnesium Sulfate (Magnesium Sulfate) 2 gm in 50 mls @ 50 mls/hr IV UD PRN PRN Reason: MG = or < 1.7 Sodium Chloride (Sodium Chloride 0.9%) 1,000 mls @ 50 mls/hr IV .Q20H [facility] Stop: 07/22/18 12:48 Last Admin: 07/21/18 09:18 Dose: Not Given Documented by: Acetaminophen (Ofirmev) 1,000 mg in 100 mls @ 200 mls/hr IV Q6HP PRN PRN Reason: PAIN/FEVER > 101 Last Admin: 07/21/18 07:30 Dose: 200 mls/hr Documented by: Ibuprofen (Motrin) 400 mg PO QIDP PRN PRN Reason: Pain Iron Carb/Multivit/[place]/Folic Acid (Multivitamin W/Minerals) 1 tab PO DAILY [facility] Last Admin: 07/21/18 09:19 Dose: 1 tab Documented by: Morphine Sulfate (Morphine) 0 mg IV Q1HP PRN PRN Reason: PAIN LEVEL > 6 Last Admin: 07/21/18 01:20 Dose: 2 mg Documented by: Naloxone HCl (Narcan) 0.1 mg IV Q2MIN PRN PRN Reason: Opiate Reversal Ondansetron HCl (Zofran) 4 mg IV Q4-6HP PRN PRN Reason: Nausea And Vomiting Oxycodone HCl (Roxicodone) 0 mg PO Q4HP PRN PRN Reason: PAIN LEVEL 3-6 Last Admin: 07/20/18 17:14 Dose: 5 mg Documented by: Potassium Chloride (Klor-Con) 40 meq PO DAILYP PRN PRN Reason: K+ < 3.5 Senna/Docusate Sodium (Senna Plus Tablet) 1 tab PO [facility] Last Admin: 02/12/19 20:56 Dose: 1 tab Documented by: Sodium Chloride (Saline Flush) 10 ml IV Q8 [facility] Last Admin: 07/21/18 04:34 Dose: Not Given Documented by: Throat Lozenges (Cepacol) 1 lozenge PO PRN PRN PRN Reason: Sore Throat Medical - PN: A/P - Time Spent With Patient Total time spent is greater than 50% in coordination of care (as documented) at patient's floor/unit and/or counseling patient: 15 - 24 minutes (1) Closed left hip fracture Status: Acute Assessment and plan: * Left hip fracture-postop day 2. Left hemiarthroplasty. Continue postop care per orthopedics. * Pain management as per [id number] * DVT prophylaxis per orthopedics-on apixaban Medicine consult * Leukocytosis likely stress response-plateaued at 15.5. No indication for antibiotics at this time. Chest imaging improved atelectasis * History of dementia high risk delirium. Avoid sedative hypnotics * Dementia induced disorder continue citalopram * DNR Plan * Continue postop care per orthopedics * DC Deleon's catheter * PT OT/nutrition support * Discharge planning per case management-likely SNF Current Visit: Yes Medical - PN: Qual - VTE Deep Vein Thrombosis/Pulmonary Embolism Present on Admission: No
[2018-07-21] MEDS: SENNOSIDES/DOCUSATE SODIUM 1 TAB TABLET PO SCH (21:08)
[2018-07-21] MEDS: CITALOPRAM 20 MG TABLET PO SCH (21:08)
[2018-07-22] MEDS: 0.9 % SODIUM CHLORIDE 1,000 ML IV SCH (03:15)
[2018-07-22] MEDS: 0.9 % SODIUM CHLORIDE 10 ML SYRINGE IV SCH ×3 (05:06→22:16)
[2018-07-22] MEDS: IBUPROFEN 200 MG TABLET PO PRN (05:09)
[2018-07-22 05:33] LABS: Mean Corpuscular HGB Conc 31.9 g/dL (31.0-36.0); Platelet Count 194 K/mcL (140-440); Red Cell Distribution Width 14.1 % (11.5-14.5)
[2018-07-22 06:31] LABS: Band Neutrophils % 5 % (0-10); Eosinophils % (Manual) 1 % (0-7); Lymphocytes % 3 % (15-49); Monocytes % (Manual) 13 % (1-12); Platelet Estimate NORMAL (NORMAL); Segmented Neutrophils % 78 % (38-78); Toxic Granulation 1+ (NONE SEEN)
[2018-07-22 06:40] LABS: ALT/SGPT 12 U/l (0-40); Albumin/Globulin Ratio 1.2 (1.0-2.3); Alkaline Phosphatase 71 U/L (39-117); Bilirubin,Direct < 0.2 mg/dL (0.0-0.3); Blood Urea Nitrogen 23 mg/dl (8-23); Gamma Glutamyl Transpeptidase 8 U/L (8-61); Uric Acid 4.7 mg/dL (2.5-8.0)
--- NOTE | 2018-07-22 07:26 | Orthopedic Progress Note ---
Subjective Patient information: Note initiated : 07/22/18 at 7:23 am Service Date, if different from initiated Date: [] Patient: Sandoval Chaudhary 87 y/o M admitted on 07/20/18 for head injury, laceration. Chief Complaint: [] Principal diagnosis: Left hip fracture Interval history: No acute issues overnight. Objective Vital signs: Vital Signs Temp Pulse Resp BP Pulse Ox 07/22/18 03:09 98.9 F 101 H 18 167/81 91 07/22/18 00:00 98.9 F 98 H 20 150/76 92 07/21/18 20:55 95 07/21/18 20:00 99 F 88 18 160/84 95 07/21/18 17:34 98.1 F 07/21/18 16:00 97.9 F 96 H 18 149/78 94 07/21/18 15:04 100.7 F H 07/21/18 11:14 98.1 F 94 H 19 141/82 96 07/21/18 07:52 100 H 95 Intake and Output 07/21/18 07/22/18 07/22/18 21:59 05:59 13:59 Intake Total 974 50 Output Total 400 400 Balance 574 -350 Intake: IV 924 Sodium Chloride 0.9% 1,000 ml @ 824 50 mls/hr IV .Q20H [facility] Rx#: [id number] Oral 50 50 Output: Urine Catheter Amount 400 400 Other: Urine Appearance Clear Urine Color Short Bright Yellow Weight 155 lb Intake & Output: Intake & Output 07/21/18 07/22/18 07/22/18 21:59 05:59 13:59 Intake Total 974 50 Output Total 400 400 Balance 574 -350 Weight 155 lb Intake: IV 924 Sodium Chloride 0.9% 1,000 ml @ 824 50 mls/hr IV .Q20H [facility] Rx#: [id number] Oral 50 50 Output: Urine Catheter Amount 400 400 Other: Urine Appearance Clear Urine Color Short Bright Yellow Incision: Yes clean and dry Incision clean and dry: Yes Dressing: Yes intact Weight bearing status: full Range of motion: Posterior hip precations. - Labs CBC & BMP: 07/22/18 03:54 07/22/18 03:54 Labs: Orthopedic Labs 07/20/18 06:49 PT 15.4 H INR 1.2 H APTT 37 07/22/18 07/21/18 07/20/18 03:54 03:46 03:46 Hgb 11.1 L 12.0 L 12.6 L Hct 34.8 L 37.3 L 39.4 L 07/19/18 20:32 Hgb 14.1 Hct 43.9 Assessment and Plan (1) Hip fracture POD 2 s/p left hip ian arthroplasty for femoral neck fracture. --WBAT with posterior hip precautions x6 weeks --PT/OT--therapy working with him the AM again. --change dressing today --Oral pain medications- appears comfortable, will d/c IV morphine and use oral for primary pain control. -labs reviewed, H/H decreased but likely tariq today, WBC still elevated, afebrile, -prophy- liyahquis, scd's, IS, -Dispo: will need SNF placeement possibly detention. OK to d/c from ortho standpoint once facility identified. Status: Acute
[2018-07-22] MEDS: DOCUSATE SODIUM 100 MG CAPSULE PO SCH ×2 (08:45→20:12)
[2018-07-22] MEDS: APIXABAN 5 MG TABLET PO SCH ×2 (08:45→20:12)
[2018-07-22] MEDS: MULTIVIT,THER IRON,CA,FA & MIN 1 TABLET PO SCH (08:45)
[2018-07-22 10:19] LABS: RBC Morphology NORMAL (NORMAL)
--- NOTE | 2018-07-22 10:23 | Internal Med Progress Note ---
Medical - PN: Subj Patient information: Note initiated : 07/22/18 at 10:19 am Service Date, if different from initiated Date: [] Patient: Sandoval Chaudhary a 87 y/o M admitted on 07/20/18 for head injury, laceration. Chief Complaint: [] Interval history: Mr. Chaudhary is a 87 year old M with history of advanced Alzheimer's dementia with mostly non-communicative and has developed progressive weakness presents to the ER after sustaining a fall along with head laceration. He is accompanied by his who is his primary caregiver. Per records has been having substantial difficulty taking care of Sandoval due to advanced dementia.. Initial workup was consistent with left hip subcapital fracture, white count of 18,000. Patient underwent head laceration repair. Orthopedics was consulted Hospitalist service was requested for admission. At the time of evaluation patient is nonverbal. He is in moderate distress from pain. No family present. has already left home. Most of the history is obtained from review of prior medical records and ER physician. Per records patient does not have any history of coronary disease/CVA/renal failure. Patient does not have any history of smoking alcoholism. 07/20-patient seen postoperatively. Underwent left hip arthroplasty. Alert but nonverbal. Short draining clear urine. Stable hemodynamics. Systolic 170. White count down from 18.5-15.1. Patient started on anticoagulation by orthopedics for DVT prophylaxis. No family at bedside. Case management to coordinate a safe discharge plan likely to SNF. 07/21-patient doing well. No overnight events. Was able to weight-bear today with physical therapy. DC Short's catheter. X-ray chest shows interval improvement in lower lobe atelectasis/infiltrate. However white count 15.5. No fever chills. No indication for antibiotics at this time. at bedside. Doing well. Ongoing postop care as per orthopedics 07/22-patient doing well postoperatively. Ongoing nutrition/rehab support. Anticipate SNF transfer in 24 hours. No active concerns or fever chills. at bedside. Mild hypoxia/left lower lobe infiltrate/persistent leukocytosis mandates antibiotic coverage for possible pneumonia. Start Rocephin/Azithromycin - Constitutional Vitals: Vital Signs Temp Pulse Resp BP Pulse Ox 96.9 F L 86 18 127/73 91 07/22/18 07:22 07/22/18 07:22 07/22/18 07:22 07/22/18 07:22 07/22/18 07:22 Period Temp Pulse Resp BP Sys/Stephens Pulse Ox Last 24 Hr 96.9 F-100.7 F 86-101 18-20 127-167/73-84 91-96 Intake and Output 07/21/18 07/22/18 07/22/18 21:59 05:59 13:59 Intake Total 974 50 Output Total 400 400 Balance 574 -350 Weight 155 lb Intake & Output: Intake & Output 07/21/18 07/22/18 07/22/18 21:59 05:59 13:59 Intake Total 974 50 Output Total 400 400 Balance 574 -350 Weight 155 lb Intake: IV 924 Sodium Chloride 0.9% 1,000 ml @ 824 50 mls/hr IV .Q20H [facility] Rx#: [id number] Oral 50 50 Output: Urine Catheter Amount 400 400 Other: Urine Appearance Clear Urine Color Short Bright Yellow General appearance: no acute distress Exam: Nondistressed Alert Tolerating diet No anxiety or agitation Nonlabored breathing Medical - PN: Obj Da - Labs CBC & Chem 7: 07/22/18 03:54 07/22/18 03:54 Labs: Abnormal Lab Results 07/22/18 07/22/18 07/21/18 03:54 03:54 03:46 WBC 15.1 H RBC 4.10 L Hgb 11.1 L Hct 34.8 L Gran % Lymph % (Auto) Gran # Lymph # (Auto) Seg Neutrophils % Lymphocytes % 3 L Monocytes % (Manual) 13 H Myelocytes % WBC Morphology Abnorm A Toxic Granulation 1+ A PT INR Anion Gap 7.0 L BUN 29 H Glucose 132 H 147 H Phosphorus 1.9 L 2.6 L Lactate Dehydrogenase 282 H Total Protein 5.6 L Albumin 3.0 L 07/21/18 07/20/18 07/20/18 03:46 06:49 03:46 WBC 15.5 H RBC 4.37 L Hgb 12.0 L Hct 37.3 L Gran % Lymph % (Auto) Gran # Lymph # (Auto) Seg Neutrophils % 79 H Lymphocytes % 9 L Monocytes % (Manual) Myelocytes % 1 H WBC Morphology Toxic Granulation PT 15.4 H INR 1.2 H Anion Gap BUN 34 H Glucose 129 H Phosphorus Lactate Dehydrogenase Total Protein Albumin 07/20/18 07/19/18 07/19/18 03:46 20:32 20:32 WBC 15.1 H 18.5 H RBC Hgb 12.6 L Hct 39.4 L Gran % 90.2 H Lymph % (Auto) 4.6 L Gran # 16.6 H Lymph # (Auto) 0.8 L Seg Neutrophils % 87 H Lymphocytes % 6 L Monocytes % (Manual) Myelocytes % WBC Morphology Toxic Granulation PT INR Anion Gap BUN 30 H Glucose 110 H Phosphorus Lactate Dehydrogenase Total Protein Albumin Meds: Medications Apixaban (Eliquis) 2.5 mg PO BID [facility] Last Admin: 07/22/18 08:45 Dose: 2.5 mg Documented by: Bisacodyl (Dulcolax) 10 mg OR Q2-3DAYS PRN PRN Reason: Constipation Last Admin: 07/22/18 05:06 Dose: 10 mg Documented by: Citalopram Hydrobromide (Celexa) 20 mg PO HS [facility] Last Admin: 07/21/18 21:08 Dose: 20 mg Documented by: Docusate Sodium (Colace) 100 mg PO BID [facility] Last Admin: 07/22/18 08:45 Dose: Not Given Documented by: Guaifenesin/Codeine Phosphate (Robitussin Ac) 10 ml PO Q4HP PRN PRN Reason: Cough Magnesium Sulfate (Magnesium Sulfate) 2 gm in 50 mls @ 50 mls/hr IV UD PRN PRN Reason: MG = or < 1.7 Sodium Chloride (Sodium Chloride 0.9%) 1,000 mls @ 50 mls/hr IV .Q20H [facility] Stop: 07/22/18 12:48 Last Admin: 07/22/18 03:15 Dose: Not Given Documented by: Acetaminophen (Ofirmev) 1,000 mg in 100 mls @ 200 mls/hr IV Q6HP PRN PRN Reason: PAIN/FEVER > 101 Last Infusion: 07/21/18 15:34 Dose: Infused Documented by: Ibuprofen (Motrin) 400 mg PO QIDP PRN PRN Reason: Pain Last Admin: 07/22/18 05:09 Dose: 400 mg Documented by: Iron Carb/Multivit/[place]/Folic Acid (Multivitamin W/Minerals) 1 tab PO DAILY [facility] Last Admin: 07/22/18 08:45 Dose: 1 tab Documented by: Naloxone HCl (Narcan) 0.1 mg IV Q2MIN PRN PRN Reason: Opiate Reversal Ondansetron HCl (Zofran) 4 mg IV Q4-6HP PRN PRN Reason: Nausea And Vomiting Oxycodone HCl (Roxicodone) 0 mg PO Q4HP PRN PRN Reason: PAIN LEVEL 3-6 Last Admin: 07/20/18 17:14 Dose: 5 mg Documented by: Potassium Chloride (Klor-Con) 40 meq PO DAILYP PRN PRN Reason: K+ < 3.5 Potassium/Phosphorus/Sodium (Neutra Phos) 2 packet PO TID [facility] Stop: 07/24/18 09:01 Senna/Docusate Sodium (Senna Plus Tablet) 1 tab PO HS [facility] Last Admin: 07/21/18 21:08 Dose: 1 tab Documented by: Sodium Chloride (Saline Flush) 10 ml IV Q8 [facility] Last Admin: 07/22/18 05:06 Dose: 10 ml Documented by: Throat Lozenges (Cepacol) 1 lozenge PO PRN PRN PRN Reason: Sore Throat Medical - PN: A/P - Time Spent With Patient Total time spent is greater than 50% in coordination of care (as documented) at patient's floor/unit and/or counseling patient: 25 - 35 minutes (1) Closed left hip fracture Status: Acute Assessment and plan: * Left hip fracture-postop day 3. Left hemiarthroplasty. Continue postop care per orthopedics. * Pain management as per [id number] * DVT prophylaxis per orthopedics-on apixaban Medicine consult * Left lower lobe infiltrate-initiate antibiotic coverage for pneumonia in light of persistent hypoxia/leukocytosis and chest infiltrate * History of dementia high risk delirium. Avoid sedative hypnotics * Dementia induced disorder continue citalopram * DNR Plan * Continue postop care per orthopedics * start Rocephin/azithromycin * PT OT/nutrition support * Possible discharge to SNF in 24-48 hours with outpatient antibiotics and continued rehab support Current Visit: Yes Medical - PN: Qual - VTE Deep Vein Thrombosis/Pulmonary Embolism Present on Admission: No
[2018-07-22] MEDS: cefTRIAXone 2 GM in DEXTROSE 5% IN WATER 50 ML IV SCH (11:00)
[2018-07-22] MEDS: AZITHROMYCIN 500 MG in DEXTROSE 5% IN WATER 250 ML IV SCH (12:08)
[2018-07-22] MEDS: oxyCODONE HCL 5 MG TABLET PO PRN ×2 (12:11→20:25)
[2018-07-22] MEDS: NEUTRA PHOS 1 PACKET PO SCH ×2 (16:54→20:11)
[2018-07-22] MEDS: CITALOPRAM 20 MG TABLET PO SCH (20:12)
[2018-07-22] MEDS: SENNOSIDES/DOCUSATE SODIUM 1 TAB TABLET PO SCH (20:12)
[2018-07-23] MEDS: 0.9 % SODIUM CHLORIDE 10 ML SYRINGE IV SCH (05:04)
[2018-07-23 05:43] LABS: Mean Corpuscular HGB Conc 32.1 g/dL (31.0-36.0); Platelet Count 218 K/mcL (140-440); RBC 3.95 M/mcL (4.50-5.90); Red Cell Distribution Width 14.1 % (11.5-14.5)
[2018-07-23 06:03] LABS: ALT/SGPT 12 U/l (0-40); Albumin 2.8 gm/dL (3.2-5.2); Alkaline Phosphatase 65 U/L (39-117); Bilirubin,Direct < 0.2 mg/dL (0.0-0.3); Blood Urea Nitrogen 23 mg/dl (8-23); Gamma Glutamyl Transpeptidase 9 U/L (8-61); Uric Acid 4.4 mg/dL (2.5-8.0)
[2018-07-23 07:53] LABS: Band Neutrophils % 3 % (0-10); Eosinophils % (Manual) 1 % (0-7); Lymphocytes % 5 % (15-49); Monocytes % (Manual) 3 % (1-12); Platelet Estimate NORMAL (NORMAL); RBC Morphology NORMAL (NORMAL); Segmented Neutrophils % 88 % (38-78); Toxic Granulation 1+ (NONE SEEN)
[2018-07-23] MEDS: APIXABAN 5 MG TABLET PO SCH (09:15)
[2018-07-23] MEDS: cefTRIAXone 2 GM in DEXTROSE 5% IN WATER 50 ML IV SCH (09:15)
[2018-07-23] MEDS: DOCUSATE SODIUM 100 MG CAPSULE PO SCH (09:15)
[2018-07-23] MEDS: NEUTRA PHOS 1 PACKET PO SCH (09:15)
[2018-07-23] MEDS: MULTIVIT,THER IRON,CA,FA & MIN 1 TABLET PO SCH (09:15)
--- NOTE | 2018-07-23 10:11 | Discharge Summary ---
Medical - DS: Prov Patient information: Note initiated : 07/23/18 at 10:09 am Service Date, if different from initiated Date: [] Patient: Sandoval Chaudhary 87 y/o M admitted on 07/20/18 for head injury, laceration. Chief Complaint: [] Date of admission: 07/20/18 00:22 Discharge date: 07/23/18 Primary care physician: Scott Aly Consults: 07/22/18 13:43 Consult to Physician [CONS] Routine Comment: Consulting Provider: Alex Ugarte Reason For Exam: Physician to Consult Medical - DS: Meds - Discharge Medications Prescriptions: Acetaminophen [Tylenol] 325 - 650 mg PO Q6HP PRN 21 Days tab PRN Reason: Pain Apixaban [Eliquis] 2.5 mg PO BID 33 Days tab Azithromycin [Zithromax] 500 mg PO DAILY #1 tablet Cefdinir 300 mg PO BID #10 capsule oxyCODONE HCL [Roxicodone] 1 tab PO Q4HP PRN 14 Days tab PRN Reason: Pain Level 3-6 Active and Home Medications: Home Medications Citalopram Hydrobromide [Citalopram HBr] 20 mg PO DAILY 07/20/18 [History Confirmed 07/20/18 Last Taken 07/19/18] Multivitamin 1 tab PO DAILYP PRN 07/20/18 [History Confirmed 07/20/18 Last Taken Unknown] Acetaminophen [Tylenol] 325 - 650 mg PO Q6HP PRN 21 Days tab 07/22/18 [Rx Last Taken Unknown] Apixaban [Eliquis] 2.5 mg PO BID 33 Days tab 07/22/18 [Rx Last Taken Unknown] oxyCODONE HCL [Roxicodone] 1 tab PO Q4HP PRN 14 Days tab 07/22/18 [Rx Last Taken Unknown] Azithromycin [Zithromax] 500 mg PO DAILY #1 tablet 07/23/18 [Rx Last Taken Unknown] Cefdinir 300 mg PO BID #10 capsule 07/23/18 [Rx Last Taken Unknown] Medical - DS: Hosp Hospital course: Discharge diagnosis * Left hip fracture-postop day 4. Left hemiarthroplasty. Continue postop care per orthopedics. Follow-up with orthopedics as outpatient * Pain management as per [id number] * DVT prophylaxis per orthopedics-on apixaban to continue as per orthopedics Medicine consult * Left lower lobe infiltrate- continue antibiotic coverage for pneumonia in light of persistent hypoxia/leukocytosis and chest infiltrate * History of dementia high risk delirium. Avoid sedative hypnotics * Dementia induced disorder continue citalopram Brief hospital course Mr. Chaudhary is a 87 year old M with history of advanced Alzheimer's dementia with mostly non-communicative and has developed progressive weakness presents to the ER after sustaining a fall along with head laceration. He is accompanied by his who is his primary caregiver. Per records has been having substantial difficulty taking care of Sandoval due to advanced dementia.. Initial workup was consistent with left hip subcapital fracture, white count of 18,000. Patient underwent head laceration repair. Orthopedics was consulted Hospitalist service was requested for admission. At the time of evaluation patient is nonverbal. He is in moderate distress from pain. No family present. has already left home. Most of the history is obtained from review of prior medical records and ER physician. Per records patient does not have any history of coronary disease/CVA/renal failure. Patient does not have any history of smoking alcoholism. 07/20-patient seen postoperatively. Underwent left hip arthroplasty. Alert but nonverbal. Deleon draining clear urine. Stable hemodynamics. Systolic 170. White count down from 18.5-15.1. Patient started on anticoagulation by orthopedics for DVT prophylaxis. No family at bedside. Case management to coordinate a safe discharge plan likely to SNF. 07/21-patient doing well. No overnight events. Was able to weight-bear today with physical therapy. DC Deleon's catheter. X-ray chest shows interval improvement in lower lobe atelectasis/infiltrate. However white count 15.5. No fever chills. No indication for antibiotics at this time. at bedside. Doing well. Ongoing postop care as per orthopedics 07/22-patient doing well postoperatively. Ongoing nutrition/rehab support. Anticipate SNF transfer in 24 hours. No active concerns or fever chills. at bedside. Mild hypoxia/left lower lobe infiltrate/persistent leukocytosis mandates antibiotic coverage for possible pneumonia. Start Rocephin/Azithromycin 07/23-patient doing well. Ongoing postoperative rehab. Tolerating diet. Dementia at baseline. Transferring to SNF. Continue additional 5 days of oral third generation cyclosporine/1 day azithromycin for left lower lobe infiltrate. Discharge diagnosis: . - Time Spent with Patient Total time spent providing and/or coordinating discharge services: Greater than 30 minutes Medical - DS: Exam - Constitutional Vitals: Vital Signs Temp Pulse Resp BP Pulse Ox 07/23/18 07:12 97.7 F 20 172/92 95 07/23/18 03:42 97.2 F 97 H 17 164/86 93 07/23/18 00:00 98.5 F 102 H 21 154/84 94 07/22/18 20:00 99.1 F H 108 H 24 H 142/83 93 07/22/18 16:00 97.9 F 94 H 20 164/89 91 07/22/18 11:55 98.8 F 22 194/94 Intake and Output 07/22/18 07/23/18 07/23/18 21:59 05:59 13:59 Intake Total 360 Output Total 2 2 2 Balance 358 -2 -2 Intake: Oral 360 Output: # of times incontinent of urine 2 2 2 Other: Meal Dinner Percent of Meal Consumed 100% Feeding Ability Total Assistance Urine Color Pale Bright Yellow Urine Odor Normal Normal Stool Size Small Smear Smear Stool Color Brown Brown Brown Stool Consistency Liquid Liquid Soft Loose Loose # Voids 1 # Bowel Movements 1 1 # of times incontinent of 1 1 1 Bowels Weight 158 lb Medical - DS: Data Labs on day of discharge: Labs from last 24 hours 07/23/18 07/23/18 07/22/18 04:14 04:14 03:54 WBC 16.5 H RBC 3.95 L Hgb 10.8 L Hct 33.6 L MCV 85.0 MCH 27.2 MCHC 32.1 RDW 14.1 Plt Count 218 MPV 8.2 Total Counted 100 Seg Neutrophils % 88 H Band Neutrophils % 3 Lymphocytes % 5 L Monocytes % (Manual) 3 Eosinophils % (Manual) 1 WBC Morphology Abnorm A Toxic Granulation 1+ A Platelet Estimate Normal RBC Morphology Normal Normal Sodium 143 Potassium 3.6 Chloride 106 Carbon Dioxide 31 H Anion Gap 6.0 L BUN 23 Creatinine 0.8 GFR Calculation 80 Glucose 123 H Uric Acid 4.4 Calcium 8.9 Phosphorus 2.6 L Magnesium 2.0 Total Bilirubin 0.5 Direct Bilirubin < 0.2 GGT 9 AST 20 ALT 12 Alkaline Phosphatase 65 Lactate Dehydrogenase 192 Total Protein 5.5 L Albumin 2.8 L Globulin 2.7 Albumin/Globulin Ratio 1.0 Triglycerides 96 Preliminary micro results at discharge 07/20/18 01:28 Blood Culture - Preliminary Blood 07/20/18 01:36 Blood Culture - Preliminary Blood Medical - DS: A/P - Patient/Caregiver Discharge Instructions Activity: as per physical therapy Diet: Regular Diet (Per ST recommendations) Additional Instructions: Keep dressing in place as long as it appears dry. If there is strike through, please change with dry dressing- gauze and tape. Do not submerge incision in water or get wet until completely healed. Continue cefdinir for 5 days/azithromycin for 24 hours Follow-up with orthopedics as advised Continue apixaban as advised by orthopedics Prescriptions: Acetaminophen [Tylenol] 325 - 650 mg PO Q6HP PRN 21 Days tab PRN Reason: Pain Apixaban [Eliquis] 2.5 mg PO BID 33 Days tab Azithromycin [Zithromax] 500 mg PO DAILY #1 tablet Cefdinir 300 mg PO BID #10 capsule oxyCODONE HCL [Roxicodone] 1 tab PO Q4HP PRN 14 Days tab PRN Reason: Pain Level 3-6 - Follow up Plan Follow up with: Scott Aly PA-C [Primary Care Provider] - (Please call/schuled this hospital follow up.) Loree Darling MD [Physician] - 08/02/18 (Please call/scheduled this surgical follow up.) Disposition: Xfer SNF Prognosis: Fair Rehab Potential: Fair I certify that the patient requires SNF services: Yes Overall status at discharge: patient is progressing back to baseline Medical - DS: Qual - VTE Deep Vein Thrombosis/Pulmonary Embolism Present on Admission: No
[2018-07-23] MEDS: AZITHROMYCIN 500 MG in DEXTROSE 5% IN WATER 250 ML IV SCH (10:25)
[2018-07-23] MEDS: IBUPROFEN 200 MG TABLET PO PRN (11:04)
== END 2018-07-23 11:35 | DRG 469 ==
LOC: ED 18:41 → MEDSUR 07-20 00:22
PROVIDERS: ADMIT Internal Medicine; ATTEND Internal Medicine
PROC: HEMIHIP (2018-07-20 09:08)